=== PATIENT | female | born 1945 | race Caucasian/White ===

== ENCOUNTER 2017-06-18 14:17 | Inpatient (IN) | payer MEDICARE, BC ==
[~2017-06-18] VITALS: Ht 160 cm; Wt 97.1 kg
[~2017-06-18 14:17] MED LIST: ALBUTEROL SULFAT8 MG PO; ALPRAZOLAM 0.50.5 M1 PO; ALPRAZOLAM XR0.5 MG PO; ASA81BEC PO; ASCORBIC ACID500 MG PO; ASPERDRINK81 MG PO; AZITHROMYCIN 2250 MG PO; B12INJ IM; BROVANA15 MCG/2 M INH; BUDESONIDE0.25 MG/2 IH; CALCIUM + D SO1 EACH PO; CALCIUM 600 +1 EA10 PO; CEFDINIR300 MG PO; CIPROFLOXACIN500 M1 PO; COMBIVENT INH; DIABETA 5MG TABL5 MG PO; DIAZEPAM2 MG PO; DOXYCYCLINE 10100 MG PO; DUONEB 2.5-0.5 M3 ML INH; FISH OIL 1,0001 EAC8 PO; FORTAMET1000 MG PO; FUROSEMIDE 20 M20 M1 PO; GABAPENTIN600 M1 PO; HYDROCODON-ACE1 EAC7 PO; KLOR-CON 1010 MEQ PO; LANTUS100 UNIT/M SUBQ; LEVAQUIN 500 M500 M2 PO; LEVAQUIN 500 M500 MG PO; LEVEMIR100 UNIT/1 SUBQ; LEVOTHYROXIN0.125 M1 PO; LISINOPRIL20 MG PO; METFORMIN HCL500 MG PO; MUCINEX TA600 MG/TA2 PO; MUCINEX600 MG PO; MULTI VITAMIN1 EACH PO; NEURONTIN600 MG PO; NICORELIEF2 MG PO; OMEGA 3 1,0001 EACH PO; POTASSIUM20 PO; PREDNISONE 10 M10 M1 PO; PREDNISONE 10 M10 MG PO; PREDNISONE 20 M20 M1 PO; PROAIR HFA8.5 GM INH; PROTONIX40 M1 PO; PULMICORT INH; PULMICORT0.5 MG/22 INH; SERTRALINE HCL100 MG PO; SIMVASTATIN40 MG PO; SINGULAIR 10 MG10 M1 PO; TRAMADOL 50 MG50 MG PO; TRILOGY; VALIUM2 MG PO; VANCOCIN 125 M125 M1 MC; VITA-C120 GM PO; ZESTORETIC 20-1 EACH PO; ZOFRAN ODT4 MG PO
[2017-06-18 14:24] VITALS: BP 153/72
[2017-06-18] MEDS ORDERED: IRON325 PO (14:27)
[2017-06-18 15:06] LABS: INFLUENZA A ANTIGEN None Detected (None Detect); INFLUENZA B ANTIGEN None Detected (None Detect)
[2017-06-18 15:52] LABS: MCH 32.2 pg (26.0-34.0); MCHC 33.4 g/dL (28.0-37.0); MCV 96.5 fL (80.0-100.0); MPV 7.8 fl. (7.2-11.1); NUCLEATED RBCS 0 /100WBC; PLATELET COUNT* 163 thou/uL (150-400); RBC 3.42 mil/uL (4.20-5.00); RDW-CV 13.8 % (10.5-14.5); WBC 6.6 thou/uL (4.0-11.0)
[2017-06-18 16:03] LABS: CREATININE 2.3 mg/dL (0.6-1.3)
[2017-06-18 16:11] LABS: ALBUMIN 3.1 g/dL (3.4-5.0); ALKALINE PHOSPHATASE 71 U/L (46-116); ANION GAP 12 mmol/L (7-16); BUN 32 mg/dL (7-18); CALCIUM 8.9 mg/dL (8.5-10.1); CHLORIDE 98 mmol/L (98-107); CO2 26 mmol/L (21-32); NT-PRO BRAIN NAT PEPTIDE 194 pg/mL (<300); POTASSIUM 4.1 mmol/L (3.5-5.1); SGOT 30 U/L (15-37); SGPT 39 U/L (30-65); SODIUM 136 mmol/L (136-145); TOTAL BILIRUBIN 0.4 mg/dL (<0.1-1.0); TOTAL PROTEIN 6.9 g/dL (6.4-8.2); TROPONIN-I LEVEL <0.06 ng/mL (<0.06)
[2017-06-18 16:12] LABS: GLUCOSE 520 mg/dL (70-99)
[2017-06-18 16:20] LABS: ABSOLUTE LYMPHOCYTES 0.5 thou/uL (0.8-5.3); ABSOLUTE MONOCYTES 0.3 thou/uL (0.0-1.2); ABSOLUTE NEUTROPHILS 5.8 thou/uL (1.6-8.1); PLATELET ESTIMATE ADEQUATE
[2017-06-18 20:13] VITALS: BP 151/61
[2017-06-18 21:45] VITALS: BP 198/69
[2017-06-19] VITALS: BP 169/77
[2017-06-19 04:06] VITALS: BP 143/62
--- NOTE | 2017-06-19 07:46 | NUR ---
PT ADMITTED TO UNIT. FALL AGREEMENT WENT OVER, PT ORIENTED TO ROOM. PT STATED UNDERSTANDING. ASSESSMENT DOCUMENTED. MEDS GIVEN PER E-MAR. PT REPORTED NO PAIN. TELE MONITOR IN PLACE. TELE MONITOR READ V-TACH AT ONE POINT THOUGH NIGHT, BUT WHEN PT WAS ASSESSED, PT WAS OBSERVED SHAKING HER HEAD, ARMS AND LEGS REALLY HARD, AND WHEN ASKED WHAT SHE WAS DOING SHE STATED SHE WAS DOING IT BECAUSE SHE WAS HAVING A HARD TIME BREATHING. PT EDUCATED ON NOT SHAKING LIKE THAT. PT KEPT REQUESTING FOR HER O2 TO BE TURNED UP EVEN THOUGH HER SAT WAS 97%. ON COMING NURSE INFORMED. WILL CONTINUE TO MONITOR.
[2017-06-19 08:10] VITALS: BP 141/65
--- NOTE | 2017-06-19 11:18 | EKG ---
[place] [address] ELECTROCARDIOGRAM REPORT Name: VINAY PEGUERO Room: [address] ADM IN [facility].#: [id number] Admission: 06/18/17 Attend Phys: Princess Harris MD Discharge: Date of : 45 Report #: [id number] THIS REPORT FOR: //name// [facility] ED Test Date: 2017-06-18 Test Time: 15:49:57 Pat Name: VINAY PEGUERO Department: Room: [facility] Gender: F Wash Worker: : 1945 Requested By: Niya Bourgeois Order Number: [id number] MD: Panda Meeks Measurements Intervals Michie Rate: 81 P: 71 AK: 166 QRS: 34 QRSD: 118 T: 21 QT: 419 QTc: 487 Interpretive Statements Sinus rhythm Baseline wander in lead(s) V4,V5 Compared to ECG 02/14/2017 15:25:30 no change Electronically Signed On 06-19-2017 11:18:11 SCREW MACHINE REPAIRER by Panda Meeks [email or web address] <ELECTRONICALLY SIGNED> By: Panda Meeks MD, [facility] 06/19/17 1118 [id number] [id number] Panda Meeks MD, [facility] /EPI
[2017-06-19 12:00] VITALS: BP 128/59
--- NOTE | 2017-06-19 14:42 | NUR ---
PT.IN BED. FEET VRY EDEMATIOUS. SHE SAID SHE AND HER 42 YO DAUGHTER LIVE TOGETHER. THEY SUPPORT EACHOTHER. DAUGHTER DOES THE HEAVY WORK AND PT.DOES THE LIGHT WORK. PT.HAS O2,NEBULIZER AND TRILOGY THROUGH [facility] AT HOME. SHE WOULD LIKE TO GET A NEW NEBULIZER . HERS, SHE FEELS IS OLDER THAN 5 YRS OLD. TOLD HER IF THAT IS THE CASE, MEDICARE WOULD PURCHASE A NEW ONE FOR HER. CM WILL CHECK WITH [employer]. PT.STILL DRIVES, IS MOSTLY INDEPENDENT. SHE CHECKS HER BLOOD GLUCOSE BID. HAS USED [employer] IN THE PAST AND WOULD USE THEM AGAIN IF ORDERED. CM WILL FOLLOW.
--- NOTE | 2017-06-19 18:32 | NUR ---
PATIENT HAS BEEN A/O X 4 THIS SHIFT. CONTINUES ON O2 AT 7L/NC. DOES BECOME DYSPNEIC WITH EXERTION. IV SALINE LOCKED AND IV ANTIBIOTICS INFUSED ORDERED. PATIENT CONTINUES ON FINAL INSPECTOR TRACING NSR. BLOOD SUGARS ELEVATED AND SS ADJUSTED. UP TO BSC. TAKEN FOR VQ SCAN THIS AM. PATIENT UPDATED ON PLAN OF CARE. HOURLY ROUNDING COMPLETED. CALL LIGHT WITHIN REACH. WILL CONTINUE WITH PLAN OF CARE.
[2017-06-19 20:00] VITALS: BP 139/64
[2017-06-20 00:14] VITALS: BP 147/69
[2017-06-20 03:54] VITALS: BP 131/54
[2017-06-20 04:41] LABS: HEMOGLOBIN 9.7 gm/dL (12.0-15.0); MCH 31.9 pg (26.0-34.0); MCHC 33.5 g/dL (28.0-37.0); MCV 95.3 fL (80.0-100.0); MPV 8.1 fl. (7.2-11.1); RBC 3.04 mil/uL (4.20-5.00); RDW-CV 13.8 % (10.5-14.5); WBC 11.1 thou/uL (4.0-11.0)
--- NOTE | 2017-06-20 04:58 | NUR ---
PT UP MOST OF THE NIGHT, BREATHING TREATMENTS BY RT, IV STEROIDS GIVEN, UP SBA TO THE BSC, PT PLEASANT, SALINE LOCKED, CALL LIGHT IN REACH, WILL CONTINUE TO MONITOR
[2017-06-20 05:01] LABS: ALBUMIN 2.9 g/dL (3.4-5.0); CALCIUM 9.1 mg/dL (8.5-10.1); CREATININE 2.1 mg/dL (0.6-1.3); MAGNESIUM 1.7 mg/dL (1.8-2.4); POTASSIUM 4.4 mmol/L (3.5-5.1); TOTAL BILIRUBIN 0.3 mg/dL (<0.1-1.0); TOTAL PROTEIN 5.6 g/dL (6.4-8.2)
[2017-06-20 09:30] VITALS: BP 111/66
[2017-06-20 12:00] VITALS: BP 124/59
[2017-06-20 16:00] VITALS: BP 119/50
--- NOTE | 2017-06-20 19:49 | NUR ---
PATIENT HAS BEEN A/O X 4 THIS SHIFT. HAS DENIED PAIN. DOES BECOME DYSPNEIC WITH EXERTION, CONTINUES ON O2 AT 7L/NC. PATIENT ASKS TO HAVE O2 TITRATED UP WITH ANY EXERTION. PATIENT RECEIVED IV ANTIBIOTICS THIS AM. STEROIDS ADJUSTED BY DR ALEJANDRO. GIVEN ONE TIME DOSE OF IV LASIX TO HELP WITH EDEMA. KUB COMPLETED, RESULTS NEGATIVE. PATIENT UP WITH SBA TO [facility] ABLE TO HAVE LARGE BM THIS SHIFT. BLOOD SUGARS MONITORED, SS GIVEN. CONTINUES ON WINDING DEPARTMENT SUPERVISOR, TRACING NSR/ST. PATIENT HOPEFUL TO BE DISCHARGED SOON. HOURLY ROUNDING COMPLETED. CALL LIGHT WITHIN REACH. WILL CONTINUE WITH PLAN OF CARE.
[2017-06-20 20:30] VITALS: BP 128/61
[2017-06-21] VITALS (7 sets, daily range): BP systolic 104–142; BP diastolic 41–62
[2017-06-21 04:42] LABS: HEMATOCRIT 29.2 % (37.0-47.0); HEMOGLOBIN 9.7 gm/dL (12.0-15.0); MCHC 33.1 g/dL (28.0-37.0); MCV 96.7 fL (80.0-100.0); RBC 3.02 mil/uL (4.20-5.00); RDW-CV 14.1 % (10.5-14.5); WBC 13.8 thou/uL (4.0-11.0)
--- NOTE | 2017-06-21 04:48 | NUR ---
PT UP MOST OF THE NIGHT, PLEASANT, UP SBA TO THE BSC, REMAINS ON 02 AT 7L/NC, BREATHING TREATMENTS BY RT, JAMIN, CALL LIGHT IN REACH, WILL CONTINUE TO MONITOR
[2017-06-21 05:10] LABS: CALCIUM 8.7 mg/dL (8.5-10.1); CREATININE 2.4 mg/dL (0.6-1.3); POTASSIUM 3.9 mmol/L (3.5-5.1)
--- NOTE | 2017-06-21 19:25 | NUR ---
PATIENT RESTING IN BED. PATIENT DENIES ANY PAIN. PATIENT IS UP STANDBY ASSIST TO COMMODE. PATIENT IS SHORT OF AIR WITH EXERTION. PATIENT HAS O2 ON AT 7L/NC. PATIENTHAS EXCELLENT APPETITE. PATIENT DENIES ANY NEEDS AT THIS TIME. CALL LIGHT WITHIN REACH. WILL CONTINUE TO MONITOR.
[2017-06-22 03:17] VITALS: BP 115/52
--- NOTE | 2017-06-22 05:03 | NUR ---
PT SLEPT AT INTERVALS DURING THE NIGHT, IV SALINE LOCKED, REMAINS ON 02 AT 7L/NC, SOA WHEN UP TO THE BSC, HEATING PAD TO NECK FOR PAIN, PLEASANT, CALL LIGHT IN REACH, WILL CONTINUE TO MONITOR
[2017-06-22 05:06] LABS: CALCIUM 8.6 mg/dL (8.5-10.1); CREATININE 2.7 mg/dL (0.6-1.3); POTASSIUM 4.8 mmol/L (3.5-5.1)
[2017-06-22 07:30] VITALS: BP 124/55
[2017-06-22 12:05] VITALS: BP 142/48
--- NOTE | 2017-06-22 15:32 | NUR ---
[facility] followed up with Shanell at [facility] regarding possibility of pt receiving a new nebulizer. Shanell reported that pt received a nebulizer in 2002 so pt would be eligible for a new nebulizer however, pt would need to use a differenct agency since [facility] no longer has a Medicare bid to provide DME...pt was "grandfathered" in to being able to continue any current DME but not to provide any replacements; pt would need to use an agency within network with Medicare. [facility] to discuss with pt.
[2017-06-22 16:03] VITALS: BP 107/44
--- NOTE | 2017-06-22 16:13 | NUR ---
PATIENT A&OX4, ON 7L O2 VIA NC. WEARS 6-8L O2 AT HOME. UP STAND BY, STEADY GAIT. C/O SORENESS IN NECK. ALTERNATING HEAT AND COLD. NO C/O N/V. NO OTHER CONCERNS AT THIS TIME. APPROPRIATE AND COOPORATIVE WITH CARE.
[2017-06-22 19:30] VITALS: BP 128/54
[2017-06-23] VITALS: BP 141/65
[2017-06-23 04:00] VITALS: BP 123/53
[2017-06-23 04:28] LABS: HEMATOCRIT 28.8 % (37.0-47.0); HEMOGLOBIN 9.6 gm/dL (12.0-15.0); MCH 32.3 pg (26.0-34.0); MCHC 33.3 g/dL (28.0-37.0); MCV 97.2 fL (80.0-100.0); MPV 8.1 fl. (7.2-11.1); RBC 2.97 mil/uL (4.20-5.00); RDW-CV 14.2 % (10.5-14.5); WBC 10.2 thou/uL (4.0-11.0)
--- NOTE | 2017-06-23 04:33 | NUR ---
PT AWAKE MOST OF SHIFT. ASSESSMENT DOCUMENTED. MEDS GIVEN PER E-MAR. IV PATENT. PT REPORTED NECK PAIN, HEAT PAD APPLIED AND SKIN ASSESSED. NEW SKIN TEAR OBSERVED ON PT'S LEFT ARM. PICTURE TAKEN, WOUND CLEANSED AND DRESSED. TELE MONITOR IN PLACE READING SR TO ST. NO CONCERNS AT THIS TIME, WILL CONTINUE TO MONITOR.
[2017-06-23 05:07] LABS: CALCIUM 8.5 mg/dL (8.5-10.1); CREATININE 2.4 mg/dL (0.6-1.3); POTASSIUM 5.5 mmol/L (3.5-5.1)
[2017-06-23 07:50] VITALS: BP 129/55
[2017-06-23 12:00] VITALS: BP 138/66
[2017-06-23 16:50] VITALS: BP 103/61
--- NOTE | 2017-06-23 19:32 | NUR ---
PATIENT RESTING IN BED. PATIENT IS UP AD YAMILE TO COMMODE. PATIENT HAS O2 ON AT 7L/NC. PATIENT IS SOA WITH EXERTION. PATIENT HAS COMPLAINTS OF NECK PAIN, HEATING PAD AND LIDOCAINE PATCH APPLIED. PATIENT HAS GOOD APPETITE. PATIENT DENIES ANY NEEDS AT THIS TIME. CALL LIGHT WITHIN REACH. WILL CONTINUE TO MONITOR.
[2017-06-23 20:00] VITALS: BP 151/59
[2017-06-24] VITALS: BP 130/56
[2017-06-24 04:00] VITALS: BP 123/60
--- NOTE | 2017-06-24 06:07 | NUR ---
PT SLEPT ON AND OFF THORUGH NIGHT. ASSESSMENT DOCUMENTED. MEDS GIVEN PER E-MAR. PT REPORTED NECK PAIN, HEATING PAD AND ICE PACK GIVEN. IV PATENT. PT UP TO BSC THROUGH NIGHT. NO CONCERNS AT THIS TIME, WILL CONTINUE TO MONITOR.
[2017-06-24 09:00] VITALS: BP 118/64
[2017-06-24 12:13] VITALS: BP 119/49
[2017-06-24 15:41] VITALS: BP 113/50
--- NOTE | 2017-06-24 18:58 | NUR ---
PATIENT RESTING IN BED. PATIENT DENIES ANY PAIN. PATIENT IS UP TO COMMODE AD YAMILE. PATIENT HAS O2 ON AT 7L/NC. PATIENT IS SHORT OF AIR WITH EXERTION. PATIENT HAS EXCELLENT APPETITE. PATIENT DENIES ANY NEEDS AT THIS TIME. CALL LIGHT WITHIN REACH. WILL CONTINUE TO MONITOR.
[2017-06-24 21:30] VITALS: BP 123/55
[2017-06-24 21:32] LABS: URINE BILIRUBIN NEGATIVE (Negative); URINE BLOOD NEGATIVE (Negative); URINE CLARITY CLEAR; URINE COLOR YELLOW; URINE GLUCOSE-RANDOM 2+ (Negative); URINE KETONES NEGATIVE (Negative); URINE LEUKOCYTES NEGATIVE (Negative); URINE NITRITE NEGATIVE (Negative); URINE PROTEIN NEGATIVE (Negative); URINE UROBILINOGEN 0.2 E.U./dl (0.2-1.0)
[2017-06-25 00:05] VITALS: BP 154/80
[2017-06-25 04:02] VITALS: BP 113/62; BP 119/71
[2017-06-25 04:21] LABS: HEMATOCRIT 28.8 % (37.0-47.0); HEMOGLOBIN 9.5 gm/dL (12.0-15.0); MCH 32.1 pg (26.0-34.0); MCV 97.3 fL (80.0-100.0); MPV 7.8 fl. (7.2-11.1); NUCLEATED RBCS 0 /100WBC; PLATELET COUNT* 199 thou/uL (150-400); RBC 2.96 mil/uL (4.20-5.00); RDW-CV 14.1 % (10.5-14.5); WBC 13.9 thou/uL (4.0-11.0)
--- NOTE | 2017-06-25 04:36 | NUR ---
ALERT AND ORIENTED X4. UP AD YAMILE TO BEDSIDE COMMODE. DENIES PAIN OR NAUSEA. HAS OCCASSIONAL NONPRODUCTIVE. REMAINS ON 7L O2 /NC TO KEEP O2 SAT IN 90'S. WEARS BIPAP AT NIGHT. CALL LIGHT WITHIN REACH.
[2017-06-25 05:32] LABS: ABSOLUTE LYMPHOCYTES 1.1 thou/uL (0.8-5.3); ABSOLUTE MONOCYTES 0.4 thou/uL (0.0-1.2); ABSOLUTE NEUTROPHILS 12.4 thou/uL (1.6-8.1)
[2017-06-25 05:33] LABS: ANISOCYTOSIS 1+; PLATELET ESTIMATE ADEQUATE; POIKILOCYTOSIS 1+
[2017-06-25 06:17] LABS: CREATININE 2.3 mg/dL (0.6-1.3); PHOSPHORUS* 4.4 mg/dL (2.5-4.9); POTASSIUM 4.5 mmol/L (3.5-5.1)
[2017-06-25 08:00] VITALS: BP 127/57
--- NOTE | 2017-06-25 09:42 | CON ---
[address] [address] CONSULTATION Name: ANDRADESaadiaVINAY Christofer Room: [address] IN M.R.#: [id number] Admission: 06/18/17 Attend Phys: Princess Harris MD Discharge: Date of : 45 Report #: [id number] THIS REPORT FOR: //name// CC: Princess Ryanlando DATE OF SERVICE: 06/23/2017 Consult has been requested by Dr. Harris. INDICATION FOR CONSULTATION: [id number] hypoxemic respiratory failure. HISTORY OF PRESENT ILLNESS: A 71-year-old female with past medical history which includes history of COPD with chronic hypoxemic respiratory failure. I follow this patient in the office. I, however, do not have my office records available to me at this time. The account below therefore is from memory. It is possible that there are more details of that. I do not recall, but in summary this is the only patient I have in the practice right now that I have on long-term prednisone therapy with 20 mg daily for COPD. I in general try to avoid using such large doses of prednisone for COPD long-term. The patient in fact does not have much CO2 retention at her baseline. Her baseline pCO2 is in the range of 44. The patient; however, at her baseline is very hypoxemic requiring oxygen in the range of 7-10 liters to maintain O2 saturation at around 90%. The patient also has chronic renal failure. She has a baseline creatinine of around 2.1. She is followed by , amusement park ride mechanic at another facility. The patient due to severe hypoxemia was placed on Trilogy while asleep. To my recollection, she has been compliant with her Trilogy at home. She has an extensive history of smoking in the past and she has now discontinued. The patient is now admitted again on June 19. Presentation is with increase in shortness of breath. She did have a cough, but not much sputum production. She essentially does not have any other new complaints. She has swelling of lower extremities. This remains longstanding, does not appear to be significantly different from her baseline. She has sleep complaints. She has back pain, all of these appear to be at baseline. The patient, as mentioned, did have increase in shortness of breath on admission. This has persisted until today despite therapy with Solu-Medrol as well as nebulized bronchodilators. She has also been treated with Levaquin. She was initially placed on IV Lasix. This has now been changed to oral Lasix. The patient continues to complain of significant increase in shortness of breath moving onto the baseline, which is the reason for this consultation. Her oxygen needs do appear to be at baseline, however. REVIEW OF SYSTEMS: Twelve-point review of systems is negative except as [place] [address] CONSULTATION Name: VINAY PEGUERO Room: [address] IN .R.#: [id number] Admission: 06/18/17 Attend Phys: Princess Harris MD Discharge: Date of : 45 Report #: [id number] PAST MEDICAL HISTORY: Chronic hypoxemic respiratory failure. The patient required at least 7 liters of oxygen to maintain O2 saturation in the low 90s at her baseline. .She is on Trilogy while asleep long-term. 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 I have discussed this with her in the past. The patient says that she would rather rather than cut down on her prednisone, which is the reason I have her on such a large dose. Chronic renal failure with creatinine around 2.1 at baseline. 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 The patient's last available echocardiogram is from November of this year and shows left ventricular ejection fraction normal at 60-65% with a pulmonary artery systolic not elevated at 27. SOCIAL HISTORY: The patient has an extensive history of smoking in the past. At some point, she smoked up to 2 packs a day. She started smoking at the age of 20, discontinued at the age of 63. No known history of heavy alcohol use or illegal drug use. CURRENT MEDICATIONS: List in [employer] reviewed. HOME MEDICATIONS: List also in [employer] reviewed. ALLERGIES: PENICILLIN, SULFA DRUGS, TORADOL, DARVON, NARCOTICS are mentioned as allergies, unclear if the patient in fact is allergic to all of these medications. FAMILY HISTORY: Coronary artery disease, diabetes, hypertension. PHYSICAL EXAMINATION: GENERAL: She is alert, awake and oriented. VITAL SIGNS: Has a pulse of 95 and a blood pressure of 129/55. She is saturating in the low 90s. She is on 7 liters oxygen via nasal cannula. She is afebrile. Her respiratory rate is in the low 20s. HEENT: Head is normocephalic and atraumatic. Pupils are equal and reactive. There are minimal amounts of white material noted in the back of her throat. NECK: Does not show raised JVP, asymmetry, mass or lymph nodes. CHEST: Symmetrical expansion on inspection and palpation. On auscultation, breath sounds are equal, decreased. Expirations are prolonged. I do not hear any added sounds. HEART: Regular. There is no murmur. ABDOMEN: Soft and nontender. EXTREMITIES: Lower extremities do show 2-3+ edema bilaterally. There is no calf tenderness. SKIN: [place] [address] CONSULTATION Name: VINAY PEGUERO Room: [address]#: [id number] Admission: 06/18/17 Attend Phys: Princess Harris MD Discharge: Date of : 45 Report #: [id number] NEUROLOGICAL: Moves all extremities bilaterally equally and spontaneously with no focal deficit identified. DIAGNOSTIC DATA: The patient's chest x-ray is reviewed, shows some chronic changes. There is also mild increase in pulmonary vascular congestion. Compared with the patient's previous chest x-rays, I in fact do not see a major change. The patient's lab work is in [employer] and this is reviewed. D-dimer was not elevated. ASSESSMENT AND PLAN: 1. Bjabp-vj-oalobin hypoxemic respiratory failure. The patient at this time has baseline oxygen needs. She is on average volume with short pressure support while asleep long-term with Trilogy device. Trilogy device is not here. Therefore, I will go ahead and place her on one of our machines. Recommend continuing with Trilogy long-term. The patient's last echo does not show any elevation in right heart pressures, which is rather unusual considering the severity of her respiratory failure. Therefore, I will go ahead and repeat a 2D echo. The patient again is noted to be fluid overloaded. I do feel there is some mild increase in pulmonary vascular congestion on the chest x-ray. There is also pedal edema. It does not appear to be significantly different from her baseline; however, as discussed below, I feel that there may be potential benefit inclined to correct this fluid overload. 2. Chronic renal failure with fluid volume overload. I will go ahead and give her 2 doses of Lasix and albumin. We will see how she responds. I did discuss with Dr. Odell as well and I will go ahead and consult him for recommendations regarding further diuretic therapy. It is possible I feel from a respiratory point of view, she may benefit from being kept on the vacuum drum drier operator side, perhaps more dry than she has been running in the past. 3. Chronic obstructive pulmonary disease exacerbation. I did not change the dose of Solu-Medrol today. Note that she is on an unusually large dose of prednisone superintendent marine oil terminal. 4. Edema. I will go ahead and also do venous Dopplers. Thanks for this consultation. <ELECTRONICALLY SIGNED> By: Salomon Dailey MD 06/25/17 0942 1142 [id number] Silva MD /nt
[2017-06-25 12:00] VITALS: BP 132/59
--- NOTE | 2017-06-25 14:27 | NUR ---
Nutrition: Ptseen for LOS. Admitted with dyspnea. H/o CKD, stable renal FXN. Albumin 2.9, BG 190. Pt was sound asleep at time of visit. Distended belly. Pt in fluid overload. On lasix. Advised to reduce po water intake. On CHO controlled diet. Great appetite, 100%. Wt stable: 214#. Low risk.
--- NOTE | 2017-06-25 16:43 | 2DMMODE ---
[place] [address] 2 D/M-MODE ECHOCARDIOGRAM Name: VINAY PEGUERO Room: [address] IN [facility]#: [id number] Admission: 06/18/17 Attend Phys: Princess Harris, Discharge: Date of : 45 Date of Service: 06/25/17 1643 Report #: [id number] THIS REPORT FOR: //name// APPROVED REPORT Study performed: 06/25/2017 15:07:12 EXAM: Comprehensive 2D, Doppler, and color-flow Echocardiogram Patient Location: In-Patient Room #: [facility] Status: routine BSA: 1.99 HR: 89 bpm BP: 113/62 mmHg Rhythm: NSR Other Information Study Quality: Good Indications Dyspnea Resp failure 2D Dimensions LVEF(%): 42.66 (>50%) IVSd: 14.70 (7-11mm) LVOT Diam: 19.73 (18-24mm) LVDd: 47.99 mm PWd: 12.69 (7-11mm) Ascending Ao: 33.75 (22-36mm) LVDs: 37.92 (25-40mm) Aortic Root: 31.54 mm Jones's LVEF: 42.66 % Volumes Left Atrial Volume (Systole) LA ESV Index: 18.10 mL/m2 Aortic Valve AoV Peak Benito.: 1.98 m/s AO Peak Gr.: 15.68 mmHg LVOT Max P.52 mmHg AO Mean Gr.: 9.25 mmHg LVOT Mean P.37 mmHg LVOT Max V: 1.46 m/s AO V2 VTI: 38.47 cm LVOT Mean V: 0.96 m/s SHELLI (VTI): 2.39 cm2 LVOT V1 VTI: 30.12 [place] [address] 2 D/M-MODE ECHOCARDIOGRAM Name: VINAY PEGUERO Room: [address] IN .R.#: [id number] Admission: 06/18/17 Attend Phys: Princess Harris, Discharge: Date of : 45 Date of Service: 06/25/17 1643 Report #: [id number] E/A Ratio: 0.76 MV Decel. Time: 152.21 ms MV E Max Benito.: 0.90 m/s MV PHT: 44.14 ms MVA (PHT): 4.98 cm2 TDI E/Lateral E': 11.25 E/Medial E': 11.25 Medial E' Benito.: 0.08 m/s Lateral E' Benito.: 0.08 m/s Pulmonary Valve PV Peak Benito.: 1.16 m/s PV Peak Gr.: 5.36 mmHg Tricuspid Valve TR Peak Gr.: 27.11 mmHg RVSP: 32.00 mmHg Left Ventricle The left ventricle is normal size. There is normal LV segmental wall motion. Mild concentric left ventricular hypertrophy. Left ventricular systolic function is normal. The left ventricular ejection fraction is within the normal range. LVEF is 60-65%. Grade I - abnormal relaxation pattern. Right Ventricle The right ventricle is normal size. The right ventricular systolic function is normal. Atria The left atrium size is normal. The right atrium size is normal. Aortic Valve Mild aortic valve sclerosis. Trace aortic regurgitation. There is no aortic valvular stenosis. Mitral Valve The mitral valve is normal in structure. Trace mitral regurgitation. No evidence of mitral valve stenosis. Tricuspid Valve The tricuspid valve is normal in structure. Trace tricuspid regurgitation. The RVSP is 30-35 mmHg. Pulmonic Valve The pulmonary valve is normal in structure[place] [address] 2 D/M-MODE ECHOCARDIOGRAM Name: VINAY PEGUERO Room: [address] IN [facility]#: [id number] Admission: 06/18/17 Attend Phys: Princess Harris, Discharge: Date of : 45 Date of Service: 06/25/17 1643 Report #: [id number] regurgitation. Great Vessels The aortic root is normal in size. IVC is normal in size and collapses with >50% inspiration Pericardium There is no pericardial effusion. <Conclusion> The left ventricle is normal size. Mild concentric left ventricular hypertrophy. Left ventricular systolic function is normal. The left ventricular ejection fraction is within the normal range. LVEF is 60-65%. Grade I - abnormal relaxation pattern. The right ventricle is normal size. The left atrium size is normal. Mild aortic valve sclerosis. There is no aortic valvular stenosis. The mitral valve is normal in structure. Trace mitral regurgitation. IVC is normal in size and collapses with >50% inspiration There is no pericardial effusion. There is normal LV segmental wall motion. <ELECTRONICALLY SIGNED> By: Shukri Puente MD, FACC 06/25/17 164 42 42 Shukri Puente MD, FACC /INF
[2017-06-25 16:56] VITALS: BP 135/63
--- NOTE | 2017-06-25 17:21 | NUR ---
PATIENT HAS BEEN A/O X 4 THIS SHIFT. HAS DENIED PAIN OR INCREASED SHORTNESS OF AIR. CONTINUES ON O2 AT 7L/NC. SALINE LOCK PATENT. CONTINUES ON PRETZEL TWISTER TRACING NSR/ST. UP TO BSC WITH MINIMAL ASSIST. CONTINUES ON ORAL LASIX, DOSAGE CHANGED PER RENAL TO START 06/26. SWELLING DECREASED TO RIGHT FOOT PER PATIENT. APPETITE EXCELLENT. BLOOD SUGARS MONITORED, IMPROVED FROM PREVIUS SHIFTS. HOURLY ROUNDING COMPLETED. CALL LIGHT WITHIN REACH. WILL CONTINUE WITH PLAN OF CARE.
[2017-06-25 19:30] VITALS: BP 133/64
[2017-06-26] VITALS: BP 154/64
[2017-06-26 03:48] VITALS: BP 135/60
--- NOTE | 2017-06-26 05:43 | NUR ---
PT AWAKE MOST OF SHIFT. ASSESSMENT DOCUMENTED. MEDS GIVEN PER E-MAR. PT REPORTED NECK PAIN, PT ALTERNATED BETWEEN ICE PACK AND HEATING PAD FOR PAIN. PT REPORTED "UPSET STOMACH" AND REQUSTED TUMS, DR NOTIFED AND ORDERS RECIEVED. NEW IV STARTED. PT USED BSC THROUGH SHIFT. NO CONCERNS AT THIS TIME, WILL CONTINUE TO MONITOR.
[2017-06-26 08:25] VITALS: BP 154/74
[2017-06-26 11:11] LABS: UREA NITROGEN-RANDM URINE 212 mg/dL (Not Estab.)
[2017-06-26 12:00] VITALS: BP 175/73
[2017-06-26 14:49] LABS: HEMATOCRIT 28.7 % (37.0-47.0); HEMOGLOBIN 9.5 gm/dL (12.0-15.0); MCH 32.1 pg (26.0-34.0); MCHC 33.1 g/dL (28.0-37.0); MCV 96.9 fL (80.0-100.0); MPV 7.4 fl. (7.2-11.1); NUCLEATED RBCS 0 /100WBC; PLATELET COUNT* 198 thou/uL (150-400); RBC 2.97 mil/uL (4.20-5.00); RDW-CV 13.8 % (10.5-14.5); WBC 13.4 thou/uL (4.0-11.0)
[2017-06-26 15:33] LABS: ABSOLUTE LYMPHOCYTES 1.5 thou/uL (0.8-5.3); ABSOLUTE MONOCYTES 0.8 thou/uL (0.0-1.2); ABSOLUTE NEUTROPHILS 11.1 thou/uL (1.6-8.1)
[2017-06-26 15:34] LABS: CALCIUM 8.9 mg/dL (8.5-10.1); CREATININE 2.6 mg/dL (0.6-1.3); PLATELET ESTIMATE ADEQUATE; POTASSIUM 4.3 mmol/L (3.5-5.1)
--- NOTE | 2017-06-26 16:39 | NUR ---
PATIENT HAS BEEN A/O X 4 THIS SHIFT. CONTINUES ON SUPERVISOR SHIPPING ROOM TRACING NSR/ST AT TIMES. PATIENT CONTINUES ON O2 PER NC. PATIENT UP TO BSC INDEPENDENTLY. PATIENT BLOOD SUGARS MONITORED, SS GIVEN WITH MEALS. LABS DRAWN THIS AFTERNOON. PATIENT HAS DENIED PAIN. HOURLY ROUNDING COMPLETED. CALL LIGHT WITHIN REACH. WILL CONTINUE WITH PLAN OF CARE.
[2017-06-26 20:00] VITALS: BP 151/66
[2017-06-27] VITALS: BP 156/72
[2017-06-27 03:45] VITALS: BP 141/68
--- NOTE | 2017-06-27 04:54 | NUR ---
PT AWAKE MOST OF SHIFT. ASSESSMENT DOCUMENTED. MEDS GIVEN PER E-MAR. PT REPORTED PAIN HAS IMPROVED. IV PATENT. PT UP TO BSC. NO CONCERNS AT THIS TIME, WILL CONTINUE TO MONITOR.
[2017-06-27 07:25] VITALS: BP 156/67
[2017-06-27 13:05] VITALS: BP 169/70
--- NOTE | 2017-06-27 16:55 | NUR ---
PATIENT A&OX4, ON 7L O2 VIA NC, IV RIGHT HAND S/L. UP STAND BY, STEADY GAIT. NO C/O PAIN/N/V. POSITIVE FOR SEPSIS SCREANING THIS MORNING, NOTIFIED PHYSICIAN, DISCUSSED THAT SEPSIS IS NOT AN ISSUE OR CONCERN, NO NEW ORDERS. WILL CONTINUE TO MONITOR. NO OTHER CONCERNS AT THIS TIME. APPROPRIATE AND COOPORATIVE WITH CARE.
[2017-06-27 18:27] VITALS: BP 158/74
[2017-06-27 20:30] VITALS: BP 139/51
[2017-06-28] VITALS: BP 146/59
[2017-06-28 04:00] VITALS: BP 138/67
--- NOTE | 2017-06-28 04:58 | NUR ---
PT UP MOST OF THE NIGHT, NEW IV PLACED THIS AM, PLEASANT, UP TO BSC WITH SBA, REMAINS ON 02 AT 7L/NC, ON CPAP CURRENTLY, CALL LIGHT IN REACH, WILL CONTINUE TO MONITOR
[2017-06-28 09:00] VITALS: BP 134/65
[2017-06-28 12:19] VITALS: BP 163/65
[2017-06-28 15:59] VITALS: BP 131/62
--- NOTE | 2017-06-28 16:27 | NUR ---
PATIENT RESTING IN BED. PATIENT DENIES ANY PAIN. PATIENT IS UP AD YAMILE TO COMMODE AT BEDSIDE. PATIENT IS SHORT OF AIR WITH EXERTION. PATIENT HAS BEEN UP TO CHAIR FOR MEALS. PATIENT REMAINS ON 7L/NC. PATIENT HAS EXCELLENT APPETITE. PATIENT DENIES ANY NEEDS AT THIS TIME. CALL LIGHT WITHIN REACH. WILL CONTINUE TO MONITOR.
[2017-06-28 20:00] VITALS: BP 166/73
[2017-06-29 00:10] VITALS: BP 163/70
[2017-06-29 04:09] VITALS: BP 129/55
--- NOTE | 2017-06-29 04:53 | NUR ---
PT UP MOST OF THE NIGHT, UP TO BSC WITH STANDBY, REMAINS ON 02 AT 7L/NC, BREATHING TREATMENTS BY RT, PLEASANT, PRN TUMS PER REQUEST, CALL LIGHT IN REACH, WILL CONTINUE TO MONITOR
[2017-06-29 08:00] VITALS: BP 148/52
[2017-06-29 15:55] VITALS: BP 168/83
--- NOTE | 2017-06-29 16:29 | NUR ---
SW followed up with pt as there may be a possibility of pt being ready to dc tomorrow. Pt interested in new nebulizer even if through a different agency than [facility], as SW had explained to pt earlier. Pt also felt the need for rollator/4ww with a seat and HH services to follow. SW called [facility] and faxed orders and info for nebulizer and rollator. SW called [facility] and faxed referral and orders (to be signed by a doctor). Both [facility] and [facility] accepted referrals.
--- NOTE | 2017-06-29 20:05 | NUR ---
PATIENT RESTING IN BED. PATIENT HAS HAD COMPLAINTS OF LUQ PAIN, WITH PARTIAL RELIEF WITH HYDROCODONE. PATIENT HAS OXYGEN ON AT 7L/NC. PATIENT IS SHORT OF AIR WITH EXERTION. PATIENT DID WORK WITH PHYSICAL AND OCCUPATIONAL THERAPIES. PATIENT HAS GOOD APPETITE. PATIENT DENIES ANY NEEDS AT THIS TIME. CALL LIGHT WITHIN REACH. WILL CONTINUE TO MONITOR.
[2017-06-29 20:10] VITALS: BP 134/62
[2017-06-30 00:46] VITALS: BP 156/65
--- NOTE | 2017-06-30 03:32 | NUR ---
ASSUMED CARE @ 1954-06/29-SUN.AWAKE IN BED W/ HOB UP 90 DEGREES ON TABLET/Lime[employer]ray- PUTER.02 @ 7L/NC CONTINOUS.SALINE LOCK HAS GOOD BLOOD RETURN @ 2129 & FLUSHES GOOD.DRSG DIRTY BUT REFUSED DRSG CHANGED ON SALINE LOCK.CLAIMS GOING HOME 06/30-SAT.SEE PAIN MANAGEMENT @ 0049.USES BSC IND.K PAD TO NECK SINCE 1954. ON HOURLY ROUNDS.CORRECTIONS LIEUTENANT DOING ODD HOUR ROUNDS.
[2017-06-30 04:48] VITALS: BP 142/68
--- NOTE | 2017-06-30 07:32 | NUR ---
TOOK ALL DIABETIC TRAY HS SNACKS.AWAKE FROM 1954 TO 399.RESP PLACED BI PAP ON PATIENT @ 0340.SLEEPING @ 0 & 0600.BI PAP OFF @ 0600.PER PATIENT WILL BE DISCHARGED TODAY 06/30-SAT.
[2017-06-30 08:25] VITALS: BP 150/72
--- NOTE | 2017-06-30 16:00 | NUR ---
AT DISCHARGE [facility] NEEDS TO BE NOTIFIED OF DISCHARGE AND ORDERS FAXED TO THEM. [id number]-[phone]/[phone]. HELEN TO DELIVER WALKER AND NEBULIZER TO PT.-[phone].
[2017-06-30 16:48] VITALS: BP 163/78
--- NOTE | 2017-06-30 18:02 | NUR ---
PATIENT HAS BEEN A/O X 4 THIS SHIFT. MEDICATED FOR NECK/MUSCLE PAIN WITH RELIEF. CONTINUES ON 7L/NC. SALINE LOCK PATENT. UP SBA TO BSC. STATES FEELING LESS WEAK THIS SHIFT. PATIENT TOLERATING DIET. PATIENT CONTINUES WITH SWELLING TO RIGHT FOOT, STATES IS A CHRONIC PROBLEM AT HOME. CONTINUES ON DEATH CLAIM CLERK, TRACING NSR. BLOOD SUGARS MONITORED AND INSULIN GIVEN PER SS. PATIENT HOPEFUL TO BE DISCHARGED ON SUNDAY. HOURLY ROUNDING COMPLETED. CALL LIGHT WITHIN REACH. WILL CONTINUE WITH PLAN OF CARE.
[2017-06-30 19:45] VITALS: BP 135/57
[2017-06-30 23:44] VITALS: BP 155/69
[2017-07-01 04:08] VITALS: BP 147/68
--- NOTE | 2017-07-01 05:08 | NUR ---
PT AWAKE MOST OF SHIFT. ASSESSMENT DOCUMENTED. MEDS GIVEN PER E-MAR. PT REPORTED NECK PAIN, PAIN MEDS GIVEN PER E-MAR. PT ALSO ALTERNATED WITH HEAT PAD AND ICE PACK. PT UP TO BSC THROUGH NIGHT. NO CONCERNS AT THIS TIME, WILL CONTINUE TO MONITOR.
[2017-07-01 09:15] VITALS: BP 147/54
[2017-07-01 12:15] VITALS: BP 121/70
[2017-07-01 12:37] LABS: HEMATOCRIT 32.2 % (37.0-47.0); HEMOGLOBIN 10.3 gm/dL (12.0-15.0); MCH 32.1 pg (26.0-34.0); MCHC 32.1 g/dL (28.0-37.0); MPV 7.6 fl. (7.2-11.1); RBC 3.22 mil/uL (4.20-5.00); RDW-CV 14.9 % (10.5-14.5); WBC 14.3 thou/uL (4.0-11.0)
--- NOTE | 2017-07-01 12:44 | NUR ---
PATIENT STATED FEELING NAUSEOUS AFTER HAVING BOWEL MOVEMENT. PATIENT FEELING EXTREMELY SHAKY AND STATES NOT FEELING WELL. NEW IV STARTED. SPOKE WITH DR ZAMBRANO REGARDING PATIENT'S CONDITION. PATIENT STILL HAVING NECK PAIN AND LEFT STERNAL PAIN. EKG OBTAINED. DR ZAMBRANO NOTIFIED OF EKG. NEW ORDERS NOTED. CONTINUES ON ANODE BUILDER TRACING NSR. WILL CONTINUE [facility] PLAN OF CARE.
[2017-07-01 12:45] LABS: ANION GAP 6 mmol/L (7-16); BUN 48 mg/dL (7-18); CALCIUM 8.9 mg/dL (8.5-10.1); CHLORIDE 102 mmol/L (98-107); CO2 33 mmol/L (21-32); CREATININE 2.3 mg/dL (0.6-1.3); GLUCOSE 188 mg/dL (70-99); SODIUM 141 mmol/L (136-145)
[2017-07-01 12:46] LABS: POTASSIUM 2.7 mmol/L (3.5-5.1)
[2017-07-01 12:52] LABS: ALBUMIN 3.1 g/dL (3.4-5.0); ALKALINE PHOSPHATASE 62 U/L (46-116); SGOT 33 U/L (15-37); SGPT 46 U/L (30-65); TOTAL BILIRUBIN 0.4 mg/dL (<0.1-1.0); TOTAL PROTEIN 6.1 g/dL (6.4-8.2); TROPONIN-I LEVEL <0.06 ng/mL (<0.06)
[2017-07-01 16:11] VITALS: BP 144/65
[2017-07-01 19:45] VITALS: BP 142/63
--- NOTE | 2017-07-01 19:46 | NUR ---
PATIENT HAS BEEN A/O X 4, DROWSY AT TIMES. PATIENT GIVEN TYLENOL THIS EVENING FOR LOW GRADE TEMP. PATIENT CONTINUES ON STRAW BALER, TRACING NSR. TROPONINS TRENDING DOWN. O2 REMAINS IN PLACE AT 7L/NC. POTASSIUM BEING REPLACED PER ELECTROLYTE PROTOCOL. PATIENT HAS HAD NO FURTHER EPISODES OF NAUSEA SINCE THIS AFTERNOON. NEW SALINE LOCK STARTED THIS SHIFT. HAD CHEST XRAY AND RIB XRAY COMPLETED. NEW ORDERS FOR ECHO AND CARDIO CONSULT NOTED. EDEMA REMAINS TO RIGHT FOOT. PATIENT UP TO BSC WITH SBA. FALL PRECAUTIONS IN PLACE. CALL LIGHT WITHIN REACH. WILL CONTINUE WITH PLAN OF CARE.
[2017-07-01 23:40] VITALS: BP 122/67
[2017-07-02] VITALS (7 sets, daily range): BP systolic 133–142; BP diastolic 64–72
[2017-07-02 04:25] LABS: HEMATOCRIT 27.3 % (37.0-47.0); HEMOGLOBIN 9.4 gm/dL (12.0-15.0); MCH 31.7 pg (26.0-34.0); MCHC 34.4 g/dL (28.0-37.0); MPV 7.3 fl. (7.2-11.1); RBC 2.97 mil/uL (4.20-5.00); RDW-CV 13.7 % (10.5-14.5); WBC 12.3 thou/uL (4.0-11.0)
[2017-07-02 04:58] LABS: MCV 92.1 fL (80.0-100.0)
[2017-07-02 05:02] LABS: ANION GAP 7 mmol/L (7-16); BUN 40 mg/dL (7-18); CALCIUM 8.8 mg/dL (8.5-10.1); CHLORIDE 105 mmol/L (98-107); CO2 32 mmol/L (21-32); GLUCOSE 74 mg/dL (70-99); MAGNESIUM 1.4 mg/dL (1.8-2.4); POTASSIUM 3.5 mmol/L (3.5-5.1); SODIUM 144 mmol/L (136-145); TROPONIN-I LEVEL <0.06 ng/mL (<0.06)
--- NOTE | 2017-07-02 06:26 | NUR ---
PT SLEPT ON AND OFF THIS SHIFT. ASSESSMENT DOCUEMTNED. MEDS GIVEN PER E-MAR. PT REPORTED NECK PAIN, ICE PACK USED. PT ASKING ABOUT CHANGE IN MEDICATIONS AND STATES CONCERNS ABOUT THE STEROIDS BEING STOPPED. PT AMBULATING TO BSC. NO CONCERNS AT THIS TIME, WILL CONTINUE TO MONITOR.
--- NOTE | 2017-07-02 10:22 | EKG ---
[place] [address] ELECTROCARDIOGRAM REPORT Name: VNIAY PEGUERO Room: [address] ADM IN .R.#: [id number] Admission: 06/18/17 Attend Phys: Princess Harris MD Discharge: Date of : 45 Report #: [id number] THIS REPORT FOR: //name// [facility] Test Date: 2017-07-01 Test Time: 12:03:17 Pat Name: VINAY PEGUERO Department: Room: [address] Gender: F Pocketed Spring Assembler: [facility] : 1945 Requested By: Jose De Jesus Gotti Order Number: [id number] Cris MD: Panda Meeks Measurements Intervals [place] Rate: 91 P: 56 VT: 168 QRS: 23 QRSD: 85 T: QT: 447 QTc: 551 Interpretive Statements Sinus rhythm Borderline T wave abnormalities Prolonged QT interval Baseline wander in lead(s) V4 Compared to ECG 06/18/2017 15:49:57 T-wave abnormality now present Prolonged QT interval now present Electronically Signed On 07-02-2017 10:21:52 OCCUPATIONAL NURSE by Panda Meeks [email or web address] <ELECTRONICALLY SIGNED> By: Panda Meeks MD, [facility] 07/02/17 1021 1203 1203 Panda Meeks MD, [facility] /EPI
--- NOTE | 2017-07-02 10:27 | EKG ---
[place] [address] ELECTROCARDIOGRAM REPORT Name: VINAY PEGUERO Room: [address] ADM IN .R.#: [id number] Admission: 06/18/17 Attend Phys: Princess Harris MD Discharge: Date of : 45 Report #: [id number] THIS REPORT FOR: //name// [facility] Test Date: 2017-07-01 Test Time: 14:18:12 Pat Name: VINAY PEGUERO Department: Room: [address] Gender: F Time Broker: [facility] : 1945 Requested By: Jose De Jesus Gotti Order Number: [id number] Cris MD: Panda Meeks Measurements Intervals [place] Rate: 99 P: 67 NH: 183 QRS: 46 QRSD: 81 T: 209 QT: 328 QTc: 421 Interpretive Statements Sinus rhythm Nonspecific T abnormalities, lateral leads Electronically Signed On 07-02-2017 10:26:45 PATENT PROSECUTION ATTORNEY by Panda Meeks [email or web address] <ELECTRONICALLY SIGNED> By: Panda Meeks MD, [facility] 07/02/17 1026 1418 1418 Panda Meeks MD, FACC /EPI
--- NOTE | 2017-07-02 12:04 | NUR ---
SW met with pt to follow up on dc plans. Pt said she is feeling dizzy and not well again and that she thinks she has taken a "turn for the worse again". SW explained that SW received message from [facility] stating that pt received a nebulizer from [facility] in December of 2015 and that pt does not qualify for a rollator. Pt aware to contact [facility] [phone] for any parts or to service the nebulizer. Pt said she did not understand why she wouldn't qualify for a Rollator and later SW clarified with [facility] that pt would need to have neurological disease in order to meet criteria. [facility] [phone] and fax [phone] plan to accept referral and just need signed orders/med list upon pt dc. SW to continue to follow to assist with safe dc planning.
--- NOTE | 2017-07-02 16:02 | CON ---
[address] [address] CONSULTATION Name: ANDRADESaadiaVINAY Christofer Room: [address] IN .R.#: [id number] Admission: 06/18/17 Attend Phys: Princess Harris MD Discharge: Date of : 45 Report #: [id number] THIS REPORT FOR: //name// CC: Princess Tan MD DATE OF SERVICE: 07/02/2017 HISTORY OF PRESENT ILLNESS: The patient is a 72-year-old single white female who I was asked to see in hospital today after she complained of chest pain. The patient has been a heavy smoker in the past. She has previously smoked 2 packs of cigarettes a day. She quit about 7 years ago. She has a history of lung cancer and underwent right thoracotomy at [facility] years ago and received chemotherapy. She still sees an oncologist. She also has a history of COPD and is followed by Dr. Silva. She is on chronic oxygen and nebulizer at home. She has had multiple hospitalizations here at [facility] for her COPD. She at this time was actually admitted almost 2 weeks ago on June 18 when she presented with increasing shortness of breath and not feeling well. She has required more oxygen at home. She is very sedentary because of her COPD. She has been weak. Since her hospitalization, she has been seen by the pulmonary service. She continued to require oxygen and nebulizers. She has been complaining of some chest tightness. It is not related to exertion or meals. There is no radiation of the pain. She has had no bleeding. I was asked to see her for further evaluation and treatment. She denied any palpitations or recent syncope. PAST MEDICAL HISTORY: Otherwise significant for tonsillectomy, cholecystectomy, appendectomy, hernia repair, hypertension, and diabetes. MEDICATIONS: On admission 2 weeks ago consisted of prednisone, lisinopril, Lasix, aspirin, Neurontin, nicotine patch, Synthroid, simvastatin, Valium as needed, insulin, glyburide, and Xanax. ALLERGIES: She is intolerance to multiple medications including MORPHINE, PENICILLIN, and SULFA. FAMILY HISTORY: Negative for heart disease. SOCIAL HISTORY: She is , lives with a daughter in [place], [place]. No history of alcohol abuse. REVIEW OF SYSTEMS: She has had no history of stroke, peptic ulcer disease, liver disease, kidney disease, or chronic skin condition. She does have chronic edema. PHYSICAL EXAMINATION: [place] [address] CONSULTATION Name: VINAY PEGUERO Room: [address]#: [id number] Admission: 06/18/17 Attend Phys: Princess Harris MD Discharge: Date of : 45 Report #: [id number] GENERAL: Revealed an elderly female, sitting on the side of bed with oxygen in place. She appeared in no acute distress. VITAL SIGNS: She had a blood pressure of 130/60, pulse is 80, and she is afebrile. HEENT: She was anicteric, conjunctivae are pink. Mucous members appear dry. NECK: Veins do not appear to be distended. No carotid bruits. CHEST: Revealed distant breath sounds. HEART: Regular rate and rhythm. No significant murmur. ABDOMEN: Obese, soft, and nontender. EXTREMITIES: She had 1+ edema of the right lower extremity. No Homans sign. Dorsalis pedis pulse cannot be palpated on the right, it is 2+ on the left. SKIN: Cool and dry. NEUROLOGIC: Nonfocal. LYMPH: No adenopathy. MUSCULOSKELETAL: No joint effusion. She had an ECG done on admission on June 18 that showed sinus rhythm with no ST or T-wave change. Her x-ray, she has had multiple chest x-rays since her admission 2 weeks ago. Initially, her chest x-ray showed evidence of right thoracotomy, mild interstitial pulmonary fibrosis, no pulmonary edema. She had a VQ scan of the chest that was low probability for pulmonary embolus. Venous duplex scan of the legs showed no DVT. She had an echocardiogram done on admission that showed left ventricular hypertrophy, ejection fraction 60%, mild aortic sclerosis. Her lab work, sodium 144, creatinine 2.0, which is unchanged from 2017; and glucose 305. She has had multiple troponins, all 0.06. She had a T4 0.7. White blood cell count 12.3 and hemoglobin was 9.4, which is unchanged from 2017. IMPRESSION AND RECOMMENDATIONS: 1. Chest pain. Atypical for angina. Suspect noncardiac. Suspect related to bronchitis. I would not recommend further cardiac workup at this time. 2. Severe chronic obstructive pulmonary disease. The patient is on chronic oxygen. 3. History of lung cancer. 4. Diabetes. 5. Hypertension. The patient does not appear to be on medications at this time. 6. Previous tobacco abuse. <ELECTRONICALLY SIGNED> By: Panda Meeks MD, FACC 07/02/17 1602 0829 [id number] Meeks MD, FAC /nt
--- NOTE | 2017-07-02 16:21 | CON ---
[address] [address] CONSULTATION Name: SIDDHARTH PEGUEROANETTE Christofer Room: [address] IN M.R.#: [id number] Admission: 06/18/17 Attend Phys: Princess Harris MD Discharge: Date of : 45 Report #: [id number] THIS REPORT FOR: //name// CC: Princess Tan This a consultation obtained by Dr. Silva for edema and diuretic management. HISTORY OF PRESENT ILLNESS: The patient is 71 years old. She unfortunately has severe COPD for which she is oxygen and steroid dependent. She is on 20 mg of prednisone chronically and follows with Dr. Silva as an outpatient. She was admitted recently with symptoms of worsening shortness of breath, and has been treated in-house with regimen for COPD exacerbation including nebulizers, intravenous steroids, antibiotics, etc. The patient had reported some worsening edema to Dr. Silva and I was called in to assist in light of her chronic kidney disease. The patient follows Dr. Gerard. Review of her labs does suggest that the patient's creatinine at baseline lies between 2.1-2.5. During this hospitalization, her creatinine did peak at 2.7 and is now down to 2.4. The patient normally takes Lasix at home 40 mg per day. She is also on 6-7 liters of oxygen at home at baseline. In the hospital here, her oxygen requirements are now at baseline. Review of her weight from today also shows that her weight is at the level it was when the patient came into the hospital. This also compared very favorably to the patient's reported weight at home. PAST MEDICAL HISTORY: Significant for chronic hypoxemic respiratory failure. The patient is on 6-7 liters of oxygen at home using ____ while at sleep and on 20 mg of prednisone to maintain her COPD exacerbation. 2. Chronic kidney disease, follows with Dr. Gerard. 3. History of acute resection from her lung in the past. 4. Diabetes. 5. Hypertension. 6. Dyslipidemia. 7. Hypothyroidism. 8. Anemia. 9. Depression. PAST SURGICAL HISTORY: History of cholecystectomy, right lower lung resection, appendectomy, inguinal hernia repair, laparoscopic surgery for small bowel adhesions and tonsillectomy. Apparently, the patient's echocardiogram from 2016 shows an ejection fraction of 60-65% with pulmonary artery systolic pressure at 27. PERSONAL AND SOCIAL AND FAMILY HISTORY: Extensive history of smoking in the past. At some point, smoked up to 2 packs a day and started very early in life around age 20, stopped smoking when she was 63. [place] history [place] [address] CONSULTATION Name: VINAY PEGUERO Room: [address] IN ..#: [id number] Admission: 06/18/17 Attend Phys: Princess Harris MD Discharge: Date of : 45 Report #: [id number] illegal drug use. HOME MEDICATIONS: Aspirin, Singulair, sertraline, gabapentin, levothyroxine, simvastatin, DuoNeb, Combivent, p.r.n. diazepam and Mucinex; potassium chloride 10 mEq per day, Lasix 40 mg per day, prednisone 20 mg per day, glyburide, alprazolam, budesonide inhaler, and Lantus insulin with sliding scale. REVIEW OF SYSTEMS: No fevers, no chills. Shortness of breath is slowly improving. She reports that she feels she has gained weight, mostly in the abdomen and feels the abdomen is tense. There is some worsening lower extremity index in the lower extremities, though she reports there is chronic edema in the right leg. PHYSICAL EXAMINATION: VITAL SIGNS: Her blood pressure this morning is 123/60, her pulse rate is 82. She is afebrile on 7 liters of oxygen, O2 sats 98%. LUNGS: Markedly diminished bilaterally with occasional PVCs on the right lung. HEART: Regular S1 and S2. ABDOMEN: Obese, soft, nontender. EXTREMITIES: Show 1-2+ pitting edema on the right leg, less edema on the left leg. Labs were reviewed. White count is 10.2, hemoglobin is 9.6. Sodium is 138, potassium is 5.5 this morning, chloride 102, bicarbonate 30, BUN is 55 and creatinine is 2.4, down from 2.7 yesterday, her blood glucose is 335, albumin level during this admission has been 2.9. IMAGING STUDIES: Doppler of the legs have been negative for DVT. Chest x-ray was done 2 days ago, which shows no acute changes, emphysematous changes are noticed pulmonarily and bilaterally but no consolidating pneumonia or pleural effusion was noted. ASSESSMENT AND PLAN: 1. Longstanding chronic obstructive pulmonary disease which is steroid and oxygen dependent. 2. Chronic lower extremity edema, right more than the left. 3. Hypertension. 4. Diabetes. 5. Obesity. 6. Heavy history of smoking. 7. Anemia. PLAN: 1. CVA, COPD symptoms seem to be improving with intravenous steroids and the aggressive DuoNeb regimen and antibiotics. 2. Lower extremity edema. I am not really convinced this is a significant [facility] [address] [place] [address] CONSULTATION Name: VINAY PEGUERO Room: [address] IN [facility]#: [id number] Admission: 06/18/17 Attend Phys: Princess Harris MD Discharge: Date of : 45 Report #: [id number] worsening of the edema with the patient, does report that she feels she has gained some weight, though that has not been objectively proven. 3. The patient does take Lasix at home. In light of the patient's severe COPD, it is unlikely that the patient does not have any cough or pulmonary light pathology or elevated PA pressures even though the last echo did not show that. In these situations, diuresis immediately has to be carried out very carefully. 4. It is okay to give the patient increased doses of diuretics for the next day or two, but I would certainly recommend stopping the lisinopril at the same time. 5. Albumin levels are not that low at this moment has supplemental albumin may not really be that beneficial in this situation. 6. We will follow closely. 7. Hyperkalemia secondary to steroid-induced glucose intolerance. We also do not have a blood gas from this admission, her metabolic panel does suggest that she has chronically elevated bicarbonate level which suggests she probably has chronic hypercapnia also. Thank you for allowing us to participate in the care of this patient. We will continue to follow and provide necessary support ____, please send the urine sample for urine electrolytes including sodium, creatinine and urea. <ELECTRONICALLY SIGNED> By: Andrey Benito MD 07/02/17 1621 0902 1850Lupillo Odell MD /peter
[2017-07-02] MEDS ORDERED: HYDROCODONE-AP1 EAC6 PO (16:52)
[2017-07-02] MEDS ORDERED: TUMS PO (16:53)
[2017-07-02] MEDS ORDERED: TYLENOL EXTRA500 MG PO (16:54)
--- NOTE | 2017-07-02 17:26 | NUR ---
PATIENT IS ALERT AND ORIENTED TODAY, PLEASANT MOST OF THE DAY. PATIENT WORE BIPAP AT NIGHT AND OXYGEN THROUGH OUT THE DAY AT 7 LITERS NASAL CANNULA. VITAL SIGNS STABLE TODAY. COMPLAINTS OF PAIN THAT IS SOMEWHAT CONTROLLED WITH ORAL PAIN MEDICATIONS AND HEAT. PATIENT DISCHARGED TO HOME WITH HOME HEALTH. DISCHARGE INSTRUCTINS GIVEN, PRESCRIPTIONS GIVEN AND QUESTIONS ANSWERED. PATIENT LEFT VIA WHEELCHAIR TO HOME WITH HOME HEALTH.
== END 2017-07-02 17:25 | disposition home health service (06) | DRG 177 ==
LOC: M.ERS 14:17 → M.TBA-ER 17:13 → M.3W 17:13
PROVIDERS: Family Medicine; Internal Medicine; Internal Medicine Nephrology; Nurse Practitioner Family; ADMIT Internal Medicine
PROC: 5A09457 Assistance with Respiratory Ventilation, 24-96 Consecutive Hours, Continuous Positive Airway Pressure (ICD-10-PCS; principal; 2017-06-24)
PROC: B24BZZ4 Ultrasonography of Heart with Aorta, Transesophageal (ICD-10-PCS; 2017-06-25)
PROC: 5A09357 Assistance with Respiratory Ventilation, Less than 24 Consecutive Hours, Continuous Positive Airway Pressure (ICD-10-PCS; 2017-06-30)
DX: J69.0 Pneumonitis due to inhalation of food and vomit (principal); E11.00 Type 2 diabetes mellitus with hyperosmolarity without nonketotic hyperglycemic-hyperosmolar coma (NKHHC); J96.21 Acute and chronic respiratory failure with hypoxia; J96.22 Acute and chronic respiratory failure with hypercapnia; N18.4 Chronic kidney disease, stage 4 (severe); J44.1 Chronic obstructive pulmonary disease with (acute) exacerbation; R65.10 Systemic inflammatory response syndrome (SIRS) of non-infectious origin without acute organ dysfunction; I12.9 Hypertensive chronic kidney disease with stage 1 through stage 4 chronic kidney disease, or unspecified chronic kidney disease; E11.40 Type 2 diabetes mellitus with diabetic neuropathy, unspecified; E78.00 Pure hypercholesterolemia, unspecified; E03.9 Hypothyroidism, unspecified; E11.22 Type 2 diabetes mellitus with diabetic chronic kidney disease; F32.9 Major depressive disorder, single episode, unspecified; E11.65 Type 2 diabetes mellitus with hyperglycemia; E66.01 Morbid (severe) obesity due to excess calories; F41.9 Anxiety disorder, unspecified; I45.81 Long QT syndrome; E87.5 Hyperkalemia; T38.0X5A Adverse effect of glucocorticoids and synthetic analogues, initial encounter; Y92.89 Other specified places as the place of occurrence of the external cause; Z90.49 Acquired absence of other specified parts of digestive tract; Z68.37 Body mass index [BMI] 37.0-37.9, adult; Z85.118 Personal history of other malignant neoplasm of bronchus and lung; Z92.21 Personal history of antineoplastic chemotherapy; Z87.891 Personal history of nicotine dependence; Z79.52 Long term (current) use of systemic steroids; Z79.4 Long term (current) use of insulin; Z79.82 Long term (current) use of aspirin; Z79.899 Other long term (current) drug therapy; Z88.5 Allergy status to narcotic agent; Z99.81 Dependence on supplemental oxygen; Z88.0 Allergy status to penicillin; Z88.2 Allergy status to sulfonamides; Z88.8 Allergy status to other drugs, medicaments and biological substances; Z83.3 Family history of diabetes mellitus; Z82.49 Family history of ischemic heart disease and other diseases of the circulatory system; Z83.6 Family history of other diseases of the respiratory system